=== PATIENT | male | born 1940 | race Caucasian/White ===

== ENCOUNTER → 2016-05-10 | Outpatient (CLI) | payer MEDICARE ==
[~2016-05-10] MED LIST: LISI-357 PO; LORTA5 PO; METF1000 PO; NOVOLOGSS SQ; PROT40TA PO; TEMA15 PO
== END ==
LOC: CDED 12:56
PROVIDERS: ATTEND Family Medicine
DX: E11.8 Type 2 diabetes mellitus with unspecified complications (principal)
CPT/HCPCS: G0108 ×2

== ENCOUNTER → 2017-04-11 | Outpatient (CLI) | payer MEDICARE ==
[~2017-04-11] MED LIST changes: +ACAR25TA PO; +AMLO10TA2 PO; +COZA50TA PO; +GRAN1TAB PO; +HUMALOG SQ; +LANTUS2P SQ; +LEVO100T5 PO; +PANT20TA2 PO; +SITA1TAB2 PO; +TEMA15CA PO
--- NOTE | 2017-04-11 14:05 | RADRPT ---
EXAM DATE/TIME: 04/11/2017 12:13 [facility] COMPARISON : INDICATIONS : Patient with a history of metastatic colorectalcancer, needs evaluated for liver m icrowave cryo CONSULT: 76 year-old male with history of metastatic colon CA in addition on Avastin maintenance with newly di agnosed solitary hepatic metastases in segment 7 of the liver near the dome. This lesion measures kam roximately 1.5 cm. This is a very technically challenging location given extreme high position near t he dome and proximity to heart/intrahepatic IVC. Patient will be scheduled for direct radiology clini c visit to discuss possible thermal ablation. Ferdinand Gomez MD on April 11, 2017 at 13:48 Board Certified Radiologist. This report was verified electronically.
== END ==
LOC: HRAD 11:38
PROVIDERS: ATTEND Internal Medicine Hematology & Oncology
DX: K76.9 Liver disease, unspecified (principal)

== ENCOUNTER 2017-04-14 14:18 | Day surgery (SDC) | payer MEDICARE ==
[~2017-04-14 14:18] MED LIST changes: -ACAR25TA PO; -AMLO10TA2 PO; -COZA50TA PO; -GRAN1TAB PO; -HUMALOG SQ; -LANTUS2P SQ; -LEVO100T5 PO; -PANT20TA2 PO; -SITA1TAB2 PO; -TEMA15CA PO
[2017-04-14 14:37] VITALS: BP 141/67; PULSE 65; RESP 20; TEMP 97.9; O2SAT 99
[2017-04-14] MEDS ORDERED: TEMA15CA PO (14:47)
[2017-04-14] MEDS ORDERED: AMLO10TA2 PO (14:47)
[2017-04-14] MEDS ORDERED: LANTUS2P SQ (14:57)
[2017-04-14] MEDS ORDERED: COZA50TA PO (14:57)
[2017-04-14] MEDS ORDERED: METF1000 PO (14:57)
[2017-04-14] MEDS ORDERED: HUMALOG SQ (14:57)
[2017-04-14] MEDS ORDERED: PANT20TA2 PO (14:57)
[2017-04-14] MEDS ORDERED: LEVO100T5 PO (14:57)
[2017-04-14] MEDS ORDERED: ACAR25TA PO (14:57)
[2017-04-14] MEDS ORDERED: SITA1TAB2 PO (14:57)
[2017-04-14] MEDS ORDERED: GRAN1TAB PO (14:57)
--- NOTE | 2017-04-14 16:02 | RADRPT ---
EXAM DATE/TIME: 04/14/2017 00:00 [facility] COMPARISON : INDICATIONS : CONSULT FOR LIVER ABLATION OBJECTIVE: Temperature: 97.9 Heart Rate: 65 Blood Pressure: 141/67 Respiratory: 18 Oximetry: 99 PNEUMONIA VACCINE: NO HISTORY OF PRESENT ILLNESS: 76-year-old male with history of perforated colon CA diagnosed in September 2015 status post colon resecti on with metastatic disease to the liver in remission on Avastin maintenance. PET/CT examination on 03/24/2017 demonstrates interval activity in previous PET negative mass in segment 8 of the liver anterio rly near the dome. He has no other apparent evidence of disease. He is without complaints with good f unctional status with controlled chronic medical conditions. PAST MEDICAL HISTORY : 1. Carcinoma, colon. 2. Metastatic, liver. 3. Hypothyriodism. 4. Diabetes type 2. 5. ANEMIA 6. Hypertension. PAST SURGICAL HISTORY : 1. RIGHT HEMICOLECTOMY 2. CATARACT SX 3. TONSILLECT SOCIAL HISTORY : Social alcohol use. Tobacco;former. ALLERGIES: 1. NKDA MEDICATIONS: 1. AMLODIPINE 10 mg q.d. 2. LANTUS INSULIN 10 units q.h.s. 3. JANUVIA 100 mg q.d. 4. METFORMIN 1000 mg b.i.d. 5. PROTONIX 40 mg q.d. 6. RESTORIL 30 mg q.h.s. 7. LEVOTHYROXINE 75 mcg q.d. 8. HUMALOG INSULIN units t.i.d. 9. LOSARTAN 50 mg q.d. 10. ACARBOSE mg q.d. PHYSICAL EXAMINATION: General: No acute distress Abdomen: Soft, nontender nondistended IMAGING STUDIES: PET/CT examination dated 03/24/2017 is reviewed. There is a 1.5 cm PET avid mass in anterior segment of the liver near the dome. There is no evidence for extrahepatic disease. ASSESSMENT: 76-year-old male with history of right colon CA metastatic to liver in remission on maintenance Avast in therapy with solitary new metastasis measuring 1.5 cm in segment 8 of the liver near the dome. Thi s is generally a challenging lesion for ablation due to proximity to the diaphragm and heart. However , this lesion is certainly amenable to ablation. Extensive discussion regarding risks and benefits wi th the patient. All questions were answered. PLAN: CT-guided microwave ablation of solitary metastasis in segment 8 of the liver. TIME SPENT: 25 minutes. Ferdinand Gmoez MD on April 14, 2017 at 15:49 Board Certified Radiologist. This report was verified electronically.
== END 2017-04-14 15:35 | disposition home or self-care (01) ==
LOC: HROP 14:18 → HRIP 14:21 → HROP 15:35
PROVIDERS: ATTEND Internal Medicine Hematology & Oncology
DX: C78.7 Secondary malignant neoplasm of liver and intrahepatic bile duct (principal); C18.9 Malignant neoplasm of colon, unspecified

== ENCOUNTER 2017-04-19 07:07 | Inpatient (IN) | payer MEDICARE ==
[~2017-04-19] VITALS: Ht 177.8 cm; Wt 64.6 kg
[~2017-04-19 07:07] MED LIST changes: +ACAR25TA PO; +AMLO10TA2 PO; +COZA50TA PO; +GRAN1TAB PO; +HUMALOG SQ; +LANTUS2P SQ; +LEVO100T5 PO; -LISI-357 PO; -LORTA5 PO; -NOVOLOGSS SQ; +PANT20TA2 PO; -PROT40TA PO; +SITA1TAB2 PO; -TEMA15 PO; +TEMA15CA PO
[2017-04-19 07:20] VITALS: BP 157/75; PULSE 68; RESP 20; TEMP 98.1; O2SAT 95
[2017-04-19] MEDS ORDERED: SODIUM CHLORID 0.9% 500 ML IV PRN (07:45)
[2017-04-19] MEDS ORDERED: ceFAZolin 2 GM PREMIX 50 ML IV SCH (07:45)
[2017-04-19] MEDS ORDERED: METOPROLOL TARTRATE 25 MG TAB PO PRN (07:45)
[2017-04-19] MEDS ORDERED: IMPLANTED VASCULAR ACCESS DEVICE/PORT - SODIUM CHLORIDE FLUSH IV FLUSH SCH (07:45)
[2017-04-19] MEDS ORDERED: INSULIN HUMAN REGULAR 1,000 UNITS/10 ML VIAL SQ PRN (07:45)
[2017-04-19] MEDS ORDERED: LACTATED RINGER'S 1000 ML IV PRN (07:45)
[2017-04-19] MEDS ORDERED: SODIUM CHLORIDE 2 ML FLUSH PRN IV FLUSH (07:45)
[2017-04-19] MEDS ORDERED: CHLORHEXIDINE GLUCONATE 2 % 1 PACK (2 CLOTHS) TOPICAL PRN (07:45)
[2017-04-19] MEDS ORDERED: POVIDONE IODINE 5% (ANTISEPSIS KIT) 4 APPLICATIONS EACH NARE PRN (07:45)
[2017-04-19] MEDS ORDERED: SODIUM CHLOR 0.9% 1000 ML IV SCH (07:45)
[2017-04-19] MEDS ORDERED: IMPLANTED VASCULAR ACCESS DEVICE/PORT - SODIUM CHLORIDE FLUSH PRN IV FLUSH (07:45)
[2017-04-19 07:59] LABS: AUTOMATED NEUTROPHIL # 3.9 TH/MM3 (1.8-7.7); BASOPHIL # 0.1 TH/MM3 (0-0.2); BASOPHIL % 0.9 % (0.0-2.0); EOSINOPHIL # 0.2 TH/MM3 (0-0.4); EOSINOPHIL % 3.7 % (0.0-4.0); HEMOGLOBIN 10.9 GM/DL (13.0-17.0); LYMPH % 21.2 % (9.0-44.0); LYMPHOCYTE # 1.3 TH/MM3 (1.0-4.8); MEAN CELL VOLUME 90.5 FL (80.0-100.0); MEAN CORPUSCULAR HEMOGLOBIN 30.7 PG (27.0-34.0); MEAN CORPUSCULAR HGB CONC 33.9 % (32.0-36.0); MEAN PLATELET VOLUME 7.5 FL (7.0-11.0); MONO % 11.2 % (0.0-8.0); MONOCYTE # 0.7 TH/MM3 (0-0.9); PLATELET COUNT 214 TH/MM3 (150-450); RED BLOOD COUNT 3.54 MIL/MM3 (4.50-5.90); RED CELL DISTRIBUTION WIDTH 16.4 % (11.6-17.2); WHITE BLOOD COUNT 6.2 TH/MM3 (4.0-11.0)
[2017-04-19 08:04] LABS: PROTHROMBIN TIME - PATIENT 9.7 SEC (9.8-11.6)
[2017-04-19 08:08] LABS: BICARBONATE 21.8 MEQ/L (21.0-32.0); CALCIUM 8.8 MG/DL (8.5-10.1); CREATININE 1.35 MG/DL (0.60-1.30)
[2017-04-19] MEDS: SODIUM CHLORIDE 2 ML FLUSH BID IV FLUSH SCH ×2 (09:00→21:00)
[2017-04-19] MEDS ORDERED: LIDOCAINE HCL 1% 20 ML VIAL ONE (09:30)
--- NOTE | 2017-04-19 11:58 | PD.RAD ---
Post CT Procedure Prog Note Pre Procedure Diagnosis: (1) Colorectal cancer, stage III Post Procedure Diagnosis: (1) Colorectal cancer, stage III Procedure Date: Apr 19, 2017 Supervising Radiologist: Ferdinand Gomez Anesthesia: General Plan of Activity Patient to Unit: PACU Patient Condition: Good See PACS Report for procedural detail/treatment Ferdinand Gomez MD Apr 19, 2017 11:58
[2017-04-19] MEDS ORDERED: DO NOT ADM ANY ANTICOAGULANT DRUGS PRN (12:45)
--- NOTE | 2017-04-19 13:12 | RADRPT ---
EXAM DATE/TIME: 04/19/2017 12:40 [facility] COMPARISON: CT ABDOMEN & PELVIS W CONTRAST, October 18, 2015, 16:09. CT GUIDED RF ABLATION, April 19, 2017, 10:17 . INDICATIONS : Post liver ablation MEDICAL HISTORY : Carcinoma, colon. Hypothyroidism. Diabetes mellitus type II. Metastatic liver SURGICAL HISTORY : colectomy ENCOUNTER: Subsequent ACUITY: 1 week PAIN SCORE: Non-responsive. LOCATION: chest FINDINGS: Portable semi-upright frontal views of the chest demonstrate no pneumothorax following recent procedu re. There is atelectasis at the lung bases related to expiratory technique. Left chest wall Infuse-a- Port is present. No pleural effusion is visualized. Pigtail drain overlies the inferior right hemitho rax/right upper quadrant. CONCLUSION: No pneumothorax is visualized. Jeffrey Saez MD on April 19, 2017 at 13:07 Board Certified Radiologist. This report was verified electronically.
[2017-04-19 16:00] VITALS: BP 156/68; PULSE 80; RESP 18; TEMP 96.8; O2SAT 97
[2017-04-19] MEDS ORDERED: TEMAZEPAM 15 MG CAP PO PRN (16:00)
--- NOTE | 2017-04-19 16:04 | RADRPT ---
EXAM DATE/TIME: 04/19/2017 10:17 [facility] COMPARISON: INVASIVE RADIOLOGY CONSULT, April 14, 2017, 0:00. CHEST EXPIRATION ONLY, April 19, 2017, 12:40. INDICATIONS : Liver lesion. Anesthesia and pain control was provided by the Anesthesia department. Prophylactic antibiotics were administered with appropriate pre-procedure timing. Vancomycin within 2 hrs of procedure, Ancef (or alternative) within 1 hr of procedure start. Intra-procedural antibiotics were given as prescribed above. DEVICE(S): 1.) 18 gauge Saleh blunt needle MEDICAL HISTORY : Carcinoma, colon. Renal insufficiency, chronic. Diabetes mellitus type 2. Hypertension. SURGICAL HISTORY : None. ENCOUNTER: Initial ACUITY: 1 day PAIN SCORE: 0/10 LOCATION: Liver PROCEDURE : Challenging CT-guided microwave ablation of 1.5 cm mass in segment 8 of the liver. The risks, benefits and alternatives to the procedure were explained and verbal and written consent w as obtained. Using automated exposure control and adjustment of the mA and/or kV according to patien t size, radiation dose was kept as low as reasonably achievable to obtain optimal diagnostic quality images. The site was prepped in sterile fashion. Full sterile technique was used, including cap, ma sk, sterile gloves and gown and a large sterile sheet. Hand hygiene and 2% chlorhexidine and/or beta dine/alcohol prep was utilized per protocol for cutaneous antisepsis. The skin and subcutaneous tiss ues were infiltrated with local anesthetic solution. DICOM format image data is available electronic ally for review and comparison. Patient was placed supine on the CT table. CT examination was performed identifying the small bowel 5 cm hepatic mass. Initial anterior medial cardiophrenic approach was utilized. An 18 gauge blunt-tip Saleh needle was advanced into the cardiophrenic sulcus and hydr dissection was performed with sali ne solution. In total, approximately 180 mL of sterile saline was injected. Disc related to a suffici ent window for advancement of a [employer] microwave probe. The pump was advanced using an anterior kam azpata. However, there was ultimately insufficient window near the liver capsule for pericardial clear ance. Therefore, probe was repositioned more anterolaterally. Advancement of the needle along this pa th resulted in a very small pneumothorax anteriorly which remains stable. There was some difficulty w ith penetrating the liver capsule with inferior mobile liver. Therefore, chest tube was placed to imp rove positioning of the liver. Ultimately following multiple maneuvers vering, the probe was successf ully advanced into the mass. Next, the mass was ablated for 8 minutes at 100 W with images obtained a t 3 minutes, 5 minutes, 8 minutes. There was appropriate progression of the ablation zone without brunilda dence for hematoma or other palpation. Probe was ultimately removed with ablation of the tract. Final post procedure CT exam demonstrated no other complication. CONCLUSION: 1. Technically successful but challenging microwave ablation of 1.5 cm mass in anterior segment 8 of the liver. 2. Small anterior procedural pneumothorax treated with small-bore chest tube. Ferdinand Gomez MD on April 19, 2017 at 15:09 Board Certified Radiologist. This report was verified electronically.
--- NOTE | 2017-04-19 16:05 | RADRPT ---
EXAM DATE/TIME: 04/19/2017 10:17 INDICATIONS : Patient with procedural pneumothorax right chest tube for decompression. Anesthesia and pain control was provided by the Anesthesia department. DEVICE(S): 1.) 8 [address] [place] 2.) 18 gauge Saleh blunt needle MEDICAL HISTORY : Carcinoma, colon. Renal insufficiency, chronic. Diabetes mellitus type 2. Hypertension. SURGICAL HISTORY : None. ENCOUNTER: Initial ACUITY: 1 day PAIN SCORE: 0/10 LOCATION: Right chest PROCEDURE : 1. CT guided chest tube placement. 2. Conscious sedation with continuous EKG and oximetry monitoring. The risks, benefits and alternatives to the procedure were explained and verbal and written consent w as obtained. The site was prepped in sterile fashion. Full sterile technique was used, including ca p, mask, sterile gloves and gown and a large sterile sheet. Hand hygiene and 2% chlorhexidine and/or betadine/alcohol prep was utilized per protocol for cutaneous antisepsis. The skin and subcutaneous tissues were infiltrated with local anesthetic solution. Using automated exposure control and adjus tment of the mA and/or kV according to patient size, radiation dose was kept as low as reasonably ach ievable to obtain optimal diagnostic quality images. DICOM format image data is available electronic ally for review and comparison. With CT guidance the chest was punctured and the prescribed catheter was placed in the anterior-infer ior right hemithorax. Wall suction was applied. Post procedure images demonstrate satisfactory posit ion of the tube. The catheter was sutured in place and a Percu-Stay was applied. Conscious sedation was performed with the prescribed dosages and duration as above. The patient marianela ated the procedure well and there were no complications. EKG and oximetry remained stable throughout the procedure. The patient was sent to post anesthesia recovery in stable condition. CONCLUSION: Uncomplicated chest tube placement for treatment of procedural pneumothorax. Please see CT ablation report for details. Ferdinand Gomez MD on April 19, 2017 at 16:01 Board Certified Radiologist. This report was verified electronically.
--- NOTE | 2017-04-19 16:06 | HHI.HP ---
[facility] Dany Peres MD Admission Diagnosis Diagnoses: (1) Metastasis to liver (2) Pneumothorax on right (3) Colon cancer (4) DM type 2 (diabetes mellitus, type 2) (5) Hypertension Chief Complaint: Pneumothorax s/p metastatic lesion ablation of the liver Travel History International Travel<30 Days: No Contact w/Intl Traveler <30 Da: No Traveled to Known Affected Are: No History of Present Illness 76-year-old male with a medical history significant for diabetes, hypertension, chemotherapy-induced anemia, hypothyroidism, metastatic colon cancer admitted to the hospital for ablation of a metastatic lesion of the liver. Postprocedure , apparently the patient had right sided pneumothorax. A chest tube has been inserted by interventional radiology. Hospitalist service admitting the patient for continuing medical management. On evaluation, the patient reports he is feeling okay except for pleuritic type chest pain on the right whenever he takes a deep breath. He has no other complaints. Review of Systems Constitutional: DENIES: Fever, Chills Respiratory: DENIES: Cough, Shortness of breath Cardiovascular: DENIES: Palpitations Gastrointestinal: DENIES: Nausea, Vomiting Except as stated in HPI: all other systems reviewed are Neg Past Family Social History Past Medical History diabetes, hypertension, chemotherapy-induced anemia, hypothyroidism, metastatic colon cancer to the liver Past Surgical History Right hemicolectomy in 2016 Cataract surgery 1997 Reported Medications Reported Meds & Active Scripts Active Reported Pantoprazole (Pantoprazole Sodium) 20 Mg Tab 40 Mg PO DAILY Metformin (Metformin HCl) 1,000 Mg Tab 1,000 Mg PO BIDPC Januvia (Sitagliptin Phosphate) 100 Mg Tab 100 Mg PO DAILY Acarbose 25 Mg Tab 50 Mg PO DAILY Take with first bite of meal. Levothyroxine (Levothyroxine Sodium) 100 Mcg Tab 150 Mcg PO DAILY Lantus Inj (Insulin Glargine) 1,000 Unit/10 Ml Vial 10 Units SQ HS Humalog Inj (Insulin Human Lispro) 1,000 Unit/10 Ml Vial 4 Units SQ ACHS Max dose at bedtime:( )units; sugars < 70,(0)units; sugars 150-199,(5)units; sugars 200-249,(10)units; sugars 250-299,(15)units; sugars 300-349,(20)units; sugars more than 349,(25)units. Granisetron (Granisetron HCl) 1 Mg Tab 1 Mg PO BID Cozaar (Losartan Potassium) 50 Mg Tab 25 Mg PO DAILY Amlodipine (Amlodipine Besylate) 10 Mg Tab 10 Mg PO DAILY Temazepam 15 Mg Cap 15 Mg PO HS PRN Allergies: Coded Allergies: No Known Allergies (Unverified Adverse Reaction, Unknown, 04/19/17) Family History Discussed and is noncontributory to current condition Social History Does not use tobacco. Alcohol socially on occasion. Physical Exam Vital Signs Vital Signs Date Time Temp Pulse Resp B/P (MAP) Pulse Ox O2 Delivery O2 Flow Rate FiO2 04/19/17 15:00 75 19 150/63 (92) 97 04/19/17 14:00 79 17 151/65 (93) 100 04/19/17 13:45 74 19 150/68 (95) 99 04/19/17 13:30 71 19 161/67 (98) 99 04/19/17 13:15 73 19 160/68 (98) 99 04/19/17 13:00 72 18 171/72 (105) 100 04/19/17 12:45 75 19 169/69 (102) 100 04/19/17 12:30 79 16 172/74 (106) 99 Nasal Cannula 2 04/19/17 12:22 98.0 87 20 178/89 (118) 98 Nasal Cannula 2 04/19/17 07:20 98.1 68 20 157/75 (102) 95 Physical Exam GENERAL: This is a well-nourished, well-developed patient, in no apparent distress. SKIN: No rashes, ecchymoses or lesions. Cool and dry. HEAD: Atraumatic. Normocephalic. No temporal or scalp tenderness. EYES: Pupils equal round and reactive. Extraocular motions intact. No scleral icterus. No injection or drainage. ENT: Nose without drainage. Throat without erythema, tonsillar hypertrophy or exudate. Uvula midline. Airway patent. NECK: Trachea midline. No JVD or lymphadenopathy. Supple, nontender, no meningeal signs. CARDIOVASCULAR: Regular rate and rhythm without murmurs, gallops, or rubs. RESPIRATORY: Right sided chest tube in place. Breath sounds diminished on the right base otherwise clear to auscultation bilaterally. No wheezes, rales, or rhonchi. GASTROINTESTINAL: Abdomen soft, non-tender, nondistended. No hepato-splenomegaly , or palpable masses. No guarding. MUSCULOSKELETAL: Extremities without clubbing, cyanosis, or edema. No joint tenderness, effusion, or edema noted. No calf tenderness. Negative Homans sign bilaterally. NEUROLOGICAL: Awake and alert. Cranial nerves II through XII intact. Motor and sensory grossly within normal limits. Five out of 5 muscle strength in all muscle groups. Normal speech. Laboratory Laboratory Tests Test 04/19/17 07:35 04/19/17 07:40 Prothrombin Time 9.7 Prothromb Time International Ratio 1.0 Activated Partial Thromboplast Time 29.2 Blood Urea Nitrogen 23 Creatinine 1.35 Random Glucose 122 Calcium Level 8.8 Sodium Level 140 Potassium Level 4.1 Chloride Level 110 Carbon Dioxide Level 21.8 Anion Gap 8 Estimat Glomerular Filtration Rate 52 White Blood Count 6.2 Red Blood Count 3.54 Hemoglobin 10.9 Hematocrit 32.0 Mean Corpuscular Volume 90.5 Mean Corpuscular Hemoglobin 30.7 Mean Corpuscular Hemoglobin Concent 33.9 Red Cell Distribution Width 16.4 Platelet Count 214 Mean Platelet Volume 7.5 Neutrophils (%) (Auto) 63.0 Lymphocytes (%) (Auto) 21.2 Monocytes (%) (Auto) 11.2 Eosinophils (%) (Auto) 3.7 Basophils (%) (Auto) 0.9 Neutrophils # (Auto) 3.9 Lymphocytes # (Auto) 1.3 Monocytes # (Auto) 0.7 Eosinophils # (Auto) 0.2 Basophils # (Auto) 0.1 CBC Comment DIFF FINAL Differential Comment Result Diagram: 04/19/17 0740 04/19/17 0735 Caprini VTE Risk Assessment Caprini VTE Risk Assessment: Mod/High Risk (score >= 2) VTE Pharm Contraindication: High risk for bleeding Caprini Risk Assessment Model Point Value = 1 Point Value = 2 Point Value = 3 Point Value = 5 Age 41-60 Minor surgery BMI > 25 kg/m2 Swollen legs Varicose veins or History of unexplained or recurrent spontaneous Oral contraceptives or hormone replacement Sepsis (< 1 month) Serious lung disease, including pneumonia (< 1 month) Abnormal pulmonary function Acute myocardial infarction Congestive heart failure (< 1 month) History of inflammatory bowel disease Medical patient at bed rest Age 61-74 Arthroscopic surgery Major open surgery (> 45 min) Laparoscopic surgery (> 45 min) Malignancy Confined to bed (> 72 hours) Immobilizing plaster cast Central venous access Age >= 75 History of VTE Family history of VTE Factor V Leiden Prothrombin [id number] Lupus anticoagulant Anticardiolipin antibodies Elevated serum homocysteine Heparin-induced thrombocytopenia Other congenital or acquired thrombophilia Stroke (< 1 month) Elective arthroplasty Hip, pelvis, or leg fracture Acute spinal cord injury (< 1 month) Prophylaxis Regimen Total Risk Factor Score Risk Level Prophylaxis Regimen 0-1 Low Early ambulation 2 Moderate Order ONE of the following: *Sequential Compression Device (SCD) *Heparin 5000 units SQ BID 3-4 Higher Order ONE of the following medications: *Heparin 5000 units SQ TID *Enoxaparin/Lovenox 40 mg SQ daily (WT < 150 kg, CrCl > 30 mL/min) *Enoxaparin/Lovenox 30 mg SQ daily (WT < 150 kg, CrCl > 10-29 mL/min) *Enoxaparin/Lovenox 30 mg SQ BID (WT < 150 kg, CrCl > 30 mL/min) AND/OR *Sequential Compression Device (SCD) 5 or more Highest Order ONE of the following medications: *Heparin 5000 units SQ TID (Preferred with Epidurals) *Enoxaparin/Lovenox 40 mg SQ daily (WT < 150 kg, CrCl > 30 mL/min) *Enoxaparin/Lovenox 30 mg SQ daily (WT < 150 kg, CrCl > 10-29 mL/min) *Enoxaparin/Lovenox 30 mg SQ BID (WT < 150 kg, CrCl > 30 mL/min) AND *Sequential Compression Device (SCD) Assessment and Plan Problem List: (1) Pneumothorax on right ICD Code: J93.9 - Pneumothorax, unspecified (2) Colon cancer ICD Code: C18.9 - Malignant neoplasm of colon, unspecified Status: Acute (3) Metastasis to liver ICD Code: C78.7 - Secondary malignant neoplasm of liver and intrahepatic bile duct (4) DM type 2 (diabetes mellitus, type 2) ICD Code: E11.9 - Type 2 diabetes mellitus without complications Status: Acute (5) Hypertension ICD Code: I10 - Essential (primary) hypertension Status: Acute Assessment and Plan 76-year-old male with metastatic colon cancer with a solitary metastatic lesion to the liver admitted to the hospital for ablation of the liver lesion. Postprocedure, the patient apparently had a right sided pneumothorax. A chest tube has been placed by interventional radiology. Official IR report is pending. Right sided pneumothorax: - Repeat chest x-ray shows expansion status post chest tube placement. - Pain control - Supplemental oxygen, Incentive spirometry - Further plans per interventional radiology. Hypertension: - Continue home dose antihypertensives including amlodipine and losartan. Type 2 diabetes: -Hold metformin and her carb post - Continue Lantus 10 units subcutaneous at bedtime. Sliding scale insulin with Accu-Cheks Metastatic colon cancer: - Followed by Dr. Castillo. Has been relatively stable on Avastin. Status post ablation of the liver lesion as above. Advised outpatient follow-up with Dr. Castillo. GI prophylaxis: Stool softener PRN constipation. DVT PPx: SCDs. Patient has fresh chest tube, hold off on pharmacological DVT prophylaxis. Physician Certification 2 Midnight Certification Type: Admission for Inpatient Services Order for Inpatient Services The services are ordered in accordance with Medicare regulations or non- Medicare payer requirements, as applicable. In the case of services not specified as inpatient-only, they are appropriately provided as inpatient services in accordance with the 2-midnight benchmark. Estimated LOS (days): 2 days is the estimated time the patient will need to remain in the hospital, assuming treatment plan goals are met and no additional complications. Post-Hospital Plan: Home Girma Lambert MD Apr 19, 2017 16:06
[2017-04-19] MEDS ORDERED: ACETAMINOPHEN/HYDROcodone 325 MG/5 MG TAB PO PRN (16:30)
[2017-04-19] MEDS ORDERED: MORPHINE SULFATE 2 MG/ML INJ IV PUSH PRN (16:30)
[2017-04-19] MEDS: INSULIN ASPART 1,000 UNITS/10 ML VIAL SQ SCH ×2 (17:15→21:00)
[2017-04-19 20:00] VITALS: BP 151/100; PULSE 89; RESP 16; TEMP 96.8; O2SAT 98
[2017-04-19] MEDS: INSULIN DETEMIR 100 UNITS/ML VIAL SQ SCH (21:00)
[2017-04-20] VITALS: BP 156/69; PULSE 80; RESP 16; TEMP 96.9; O2SAT 95
--- NOTE | 2017-04-20 00:27 | EKG ---
Date Performed: 04/19/2017 Time Performed: 07:39:44 PTAGE: 76 years EKG: Sinus rhythm NONSPECIFIC T-WAVE ABNORMALITY PREVIOUS TRACING : 10/06/2015 21.42 Since the prior tracing, there has been no significan t change DOCTOR: Robert Aguirre Interpretating Date/Time 04/20/2017 00:27:01
[2017-04-20 04:00] VITALS: BP 156/69; PULSE 81; RESP 16; TEMP 97.1; O2SAT 96
[2017-04-20] MEDS: LEVOTHYROXINE SODIUM 150 MCG TAB PO SCH (04:54)
[2017-04-20 08:00] VITALS: BP 195/87; PULSE 81; RESP 18; TEMP 99.1; O2SAT 95
[2017-04-20] MEDS: INSULIN ASPART 1,000 UNITS/10 ML VIAL SQ SCH ×4 (08:00→20:53)
[2017-04-20] MEDS: PANTOPRAZOLE SOD 40 MG DELAYED RELEASE TAB PO SCH (08:37)
[2017-04-20] MEDS: LOSARTAN 25 MG TAB PO SCH (08:37)
[2017-04-20] MEDS: SODIUM CHLORIDE 2 ML FLUSH BID IV FLUSH SCH ×2 (09:00→21:00)
--- NOTE | 2017-04-20 09:49 | RADRPT ---
EXAM DATE/TIME: 04/20/2017 08:12 [facility] COMPARISON: CHEST EXPIRATION ONLY, April 19, 2017, 12:40. INDICATIONS : Right pneumothorax. MEDICAL HISTORY : Hypertension. Diabetes mellitus type II. Carcinoma, colon. Carcinoma, Liver SURGICAL HISTORY : Infuse a port, Liver ablation. ENCOUNTER: Subsequent ACUITY: 2 days PAIN SCORE: 5/10 LOCATION: Right chest FINDINGS: A single frontal expiratory view of the chest was performed. No evidence of pneumothorax. Mediasti nal structures are in the midline. Left chest wall [id number] catheter. Small right-sided chest tu be and right basilar density. CONCLUSION: 1. Right-sided chest tube without pneumothorax. Hugh Rao MD on April 20, 2017 at 9:45 Board Certified Radiologist. This report was verified electronically.
[2017-04-20 12:00] VITALS: BP 152/70; PULSE 86; RESP 18; TEMP 98.4; O2SAT 96
[2017-04-20] MEDS ORDERED: ALPRAZolam 0.5 MG TAB PO ONE (12:50)
[2017-04-20 16:00] VITALS: BP 141/76; PULSE 79; RESP 16; TEMP 99.3; O2SAT 96
--- NOTE | 2017-04-20 19:51 | HHI.PR ---
Subjective Remarks 76M with right side pneumothorax and chest tube. His discomfort is controlled with pain meds, tolerating PO fine. He was hoping to go home soon, but I explained that expansion of a lung can sometimes take a few days depending on the size of the pneumothorax. Objective Vitals Vital Signs Date Time Temp Pulse Resp B/P (MAP) Pulse Ox O2 Delivery O2 Flow Rate FiO2 04/20/17 16:00 99.3 79 16 141/76 (97) 96 04/20/17 12:00 98.4 86 18 152/70 (97) 96 04/20/17 08:00 99.1 81 18 195/87 (123) 95 04/20/17 04:00 97.1 81 16 156/69 (98) 96 04/20/17 01:47 Nasal Cannula 2.00 04/20/17 00:00 96.9 80 16 156/69 (98) 95 04/19/17 20:00 96.8 89 16 151/100 (117) 98 I/O 04/19/17 04/19/17 04/19/17 04/20/17 04/20/17 04/20/17 07:00 15:00 23:00 07:00 15:00 23:00 Intake Total 740 ml 480 ml 480 ml Output Total 300 ml 1050 ml 600 ml Balance 440 ml -570 ml -120 ml Intake Oral 240 ml 480 ml 480 ml IV Total 500 ml Output Urine Total 300 ml 1050 ml 600 ml Chest Tube Drainage Total 0 ml # Voids 2 # Bowel Movements 0 0 0 Result Diagram: 04/19/17 0740 04/19/17 0735 Imaging Last 48 hours Impressions Chest X-Ray 04/20/17 0000 Signed Impressions: Service Date/Time: Thursday, April 20, 2017 08:12 - CONCLUSION: 1. Right-sided chest tube without pneumothorax. Hugh Rao MD Guidance Needle Placement CT 04/19/17 0000 Signed Impressions: Service Date/Time: Wednesday, April 19, 2017 10:17 - CONCLUSION: 1. Technically successful but challenging microwave ablation of 1.5 cm mass in anterior segment 8 of the liver. 2. Small anterior procedural pneumothorax treated with small-bore chest tube. Ferdinand Gomez MD Chest X-Ray 04/19/17 0000 Signed Impressions: Service Date/Time: Wednesday, April 19, 2017 12:40 - CONCLUSION: No pneumothorax is visualized. Jeffrey Saez MD Chest Tube Insertion 04/19/17 0000 Signed Impressions: Service Date/Time: Wednesday, April 19, 2017 10:17 - CONCLUSION: Uncomplicated chest tube placement for treatment of procedural pneumothorax. Please see CT ablation report for details. Ferdinand Gomez MD A/P Problem List: (1) Pneumothorax on right ICD Code: J93.9 - Pneumothorax, unspecified (2) Colon cancer ICD Code: C18.9 - Malignant neoplasm of colon, unspecified Status: Acute (3) Metastasis to liver ICD Code: C78.7 - Secondary malignant neoplasm of liver and intrahepatic bile duct (4) DM type 2 (diabetes mellitus, type 2) ICD Code: E11.9 - Type 2 diabetes mellitus without complications Status: Acute (5) Hypertension ICD Code: I10 - Essential (primary) hypertension Status: Acute Assessment and Plan Right sided pneumothorax No pneumothorax evident on current CXR Pulmonology consulted for assistance with chest tube removal PRN oxygen, incentive spirometry Unclear if intervention radiology is following since the H&P was by hospitalist following IR procedure. Hypertension Home dose Losartan and Amlodipine Type 2 diabetes Home dose Lantus 10 units at bedtime SSI coverage with accuchecks Metastatic colon cancer Followed by Dr. Castillo, table on Avastin. Status post ablation of the liver lesion as above DVT Prophylaxis Anticoagulants held due to chest tube freshly placed Reymundo Franklin MD Apr 20, 2017 19:51
[2017-04-20 20:00] VITALS: BP 167/72; PULSE 87; RESP 22; TEMP 99.7; O2SAT 97
[2017-04-20] MEDS: INSULIN DETEMIR 100 UNITS/ML VIAL SQ SCH (20:53)
[2017-04-20] MEDS ORDERED: TEMAZEPAM 15 MG CAP PO SCH (22:00)
[2017-04-21] VITALS: BP 158/75; PULSE 85; RESP 20; TEMP 98.8; O2SAT 98
[2017-04-21] MEDS: LEVOTHYROXINE SODIUM 150 MCG TAB PO SCH (06:23)
--- NOTE | 2017-04-21 07:17 | RADRPT ---
EXAM DATE/TIME: 04/21/2017 06:10 [facility] COMPARISON: CHEST EXPIRATION ONLY, April 20, 2017, 8:12. INDICATIONS : Short of breath, evaluate right side pneumothorax MEDICAL HISTORY : Hypertension. Diabetes mellitus type II. Carcinoma, colon. carcinoma , liver SURGICAL HISTORY : infusaport, liver ablation ENCOUNTER: Subsequent ACUITY: 4 - 6 days PAIN SCORE: 8/10 LOCATION: Right chest FINDINGS: Small caliber chest tube again seen at the extreme right lung base. There is mild right base atelecta sis again noted, not significantly changed. No pneumothorax demonstrated. Left lung remains clear. Heart size stable, within normal limits. Left subclavian [id number] catheter again seen with tip a t the atriocaval junction. CONCLUSION: No change. Right chest tube remains in place without pneumothorax. Mild right base consolidation agai n seen. Jeffrey Lobato MD on April 21, 2017 at 7:13 Board Certified Radiologist. This report was verified electronically.
[2017-04-21] MEDS: INSULIN ASPART 1,000 UNITS/10 ML VIAL SQ SCH ×2 (07:59→12:00)
[2017-04-21 08:00] VITALS: BP 172/84; PULSE 88; RESP 18; TEMP 98.2; O2SAT 93
[2017-04-21] MEDS: LOSARTAN 25 MG TAB PO SCH (08:02)
[2017-04-21] MEDS: PANTOPRAZOLE SOD 40 MG DELAYED RELEASE TAB PO SCH (08:02)
[2017-04-21] MEDS: SODIUM CHLORIDE 2 ML FLUSH BID IV FLUSH SCH (08:02)
--- NOTE | 2017-04-21 10:36 | RADRPT ---
EXAM DATE/TIME: 04/21/2017 09:30 [facility] COMPARISON: No previous studies available for comparison. INDICATIONS : Pneumothorax DEVICE(S): 1.) Vaseline occlusive dressing PROCEDURE : Chest tube removal. Using aseptic technique the previously placed chest tube was easily removed in one piece and Vaseline gauze and sterile dressing was applied. Chest radiograph is to be obtained. CONCLUSION: Uncomplicated chest tube removal. Ferdinand Gomez MD on April 21, 2017 at 10:32 Board Certified Radiologist. This report was verified electronically.
--- NOTE | 2017-04-21 11:13 | HHI.PR ---
Subjective Remarks Patient reports no shortness of breath or chest pain. Doing well overnight. No abdominal pain since the procedure tolerating diet. Objective Vitals Vital Signs Date Time Temp Pulse Resp B/P (MAP) Pulse Ox O2 Delivery O2 Flow Rate FiO2 04/21/17 08:45 Room Air 04/21/17 08:00 98.2 88 18 172/84 (113) 93 04/21/17 00:00 98.8 85 20 158/75 (102) 98 04/20/17 20:00 99.7 87 22 167/72 (103) 97 04/20/17 16:00 99.3 79 16 141/76 (97) 96 04/20/17 12:00 98.4 86 18 152/70 (97) 96 I/O 04/20/17 04/20/17 04/20/17 04/21/17 04/21/17 04/21/17 07:00 15:00 23:00 07:00 15:00 23:00 Intake Total 480 ml 480 ml 360 ml Output Total 1050 ml 600 ml 775 ml Balance -570 ml -120 ml -415 ml Intake Oral 480 ml 480 ml 360 ml Output Urine Total 1050 ml 600 ml 775 ml Chest Tube Drainage Total 0 ml # Voids 2 # Bowel Movements 0 0 0 Result Diagram: 04/19/17 0740 04/19/17 0735 Other Results Item Value Date Time Bedside Blood Glucose 65 mg/dl 04/21/17 0800 Bedside Blood Glucose 175 mg/dl 04/20/17 2059 Bedside Blood Glucose 240 mg/dl 04/20/17 1200 Imaging Last 48 hours Impressions Chest X-Ray 04/21/17 0600 Signed Impressions: Service Date/Time: April 06:10 - CONCLUSION: No change. Right chest tube remains in place without pneumothorax. Mild right base consolidation again seen. Jeffrey Lobato MD Chest X-Ray 04/20/17 0000 Signed Impressions: Service Date/Time: Thursday, April 20, 2017 08:12 - CONCLUSION: 1. Right-sided chest tube without pneumothorax. Hugh Rao MD Objective Remarks GENERAL: This is a well-nourished, well-developed patient, in no apparent distress. Chest wall-right sided chest tube in place. CARDIOVASCULAR: Regular rate and rhythm RESPIRATORY: Clear to auscultation. Breath sounds equal bilaterally. No wheezes , rales, or rhonchi. GASTROINTESTINAL: Abdomen soft, non-tender, nondistended. Normal active bowel sounds MUSCULOSKELETAL: Extremities without clubbing, cyanosis, or edema. NEURO: Alert & Oriented x4 to person, place, time, situation. Moves all ext x4 A/P Problem List: (1) Pneumothorax on right ICD Code: J93.9 - Pneumothorax, unspecified Status: Acute (2) Colon cancer ICD Code: C18.9 - Malignant neoplasm of colon, unspecified Status: Chronic (3) Metastasis to liver ICD Code: C78.7 - Secondary malignant neoplasm of liver and intrahepatic bile duct Status: Chronic (4) DM type 2 (diabetes mellitus, type 2) ICD Code: E11.9 - Type 2 diabetes mellitus without complications Status: Chronic (5) Hypertension ICD Code: I10 - Essential (primary) hypertension Status: Chronic Assessment and Plan 1. pneumothorax post liver mass ablation with intervention radiology status post chest tube placement with resolved pneumothorax on chest x-ray. Patient doing well with no respiratory distress. This time, discussed with and return to radiology to remove chest tube with a follow-up portable chest x-ray. If no recurrent pneumothorax will discharge patient to home with outpatient follow-up. 2. Metastatic liver mass status post ablation with intervention radiologycurrently no active pain. We'll discharge patient home with outpatient follow-up with primary care physician and oncology. 3. Diabetes mellitus type 2 - overall blood sugar controlled, continue with Accu-Cheks with sliding scale insulin. Discharge Planning Discharge to home after chest tube removed with no recurrent pneumothorax. Problem Qualifiers (1) Hypertension: Qualified Codes: I10 - Essential (primary) hypertension Evangelina Pantoja MD Apr 21, 2017 11:13
--- NOTE | 2017-04-21 11:19 | HHI.DS ---
Discharge Summary Admission Date Apr 19, 2017 at 11:57 Discharge Date: Apr 21, 2017 Admitting Diagnosis (1) Pneumothorax on right ICD Code: J93.9 - Pneumothorax, unspecified Diagnosis: Principal Status: Resolved (2) Colon cancer ICD Code: C18.9 - Malignant neoplasm of colon, unspecified Diagnosis: Secondary Status: Chronic (3) Metastasis to liver ICD Code: C78.7 - Secondary malignant neoplasm of liver and intrahepatic bile duct Diagnosis: Secondary Status: Chronic (4) DM type 2 (diabetes mellitus, type 2) ICD Code: E11.9 - Type 2 diabetes mellitus without complications Diagnosis: Secondary Status: Chronic (5) Hypertension ICD Code: I10 - Essential (primary) hypertension Diagnosis: Secondary Status: Chronic Procedures 04/19 ablation of the liver metastatic mass with interventional radiology 04/19 chest tube insertion due to postprocedure pneumothorax Brief History - From Admission Obtained from of any physicians history and physical 76-year-old male with a medical history significant for diabetes, hypertension, chemotherapy-induced anemia, hypothyroidism, metastatic colon cancer admitted to the hospital for ablation of a metastatic lesion of the liver. Postprocedure , apparently the patient had right sided pneumothorax. A chest tube has been inserted by interventional radiology. Hospitalist service admitting the patient for continuing medical management. On evaluation, the patient reports he is feeling okay except for pleuritic type chest pain on the right whenever he takes a deep breath. He has no other complaints. CBC/BMP: 04/19/17 0740 04/19/17 0735 Significant Findings Laboratory Tests Test 04/19/17 07:35 04/19/17 07:40 Prothrombin Time 9.7 SEC (9.8-11.6) Blood Urea Nitrogen 23 MG/DL (7-18) Creatinine 1.35 MG/DL (0.60-1.30) Random Glucose 122 MG/DL (74-106) Chloride Level 110 MEQ/L (98-107) Estimat Glomerular Filtration Rate 52 ML/MIN (>89) Red Blood Count 3.54 MIL/MM3 (4.50-5.90) Hemoglobin 10.9 GM/DL (13.0-17.0) Hematocrit 32.0 % (39.0-51.0) Monocytes (%) (Auto) 11.2 % (0.0-8.0) Imaging Last Impressions Tunnelled Chest Tube Removal 04/21/17 0930 Signed Impressions: Service Date/Time: April 09:30 - CONCLUSION: Uncomplicated chest tube removal. Ferdinand Gomez MD Chest X-Ray 04/21/17 0600 Signed Impressions: Service Date/Time: April 06:10 - CONCLUSION: No change. Right chest tube remains in place without pneumothorax. Mild right base consolidation again seen. Jeffrey Lobato MD Guidance Needle Placement CT 04/19/17 0000 Signed Impressions: Service Date/Time: Wednesday, April 19, 2017 10:17 - CONCLUSION: 1. Technically successful but challenging microwave ablation of 1.5 cm mass in anterior segment 8 of the liver. 2. Small anterior procedural pneumothorax treated with small-bore chest tube. Ferdinand Gomez MD Chest Tube Insertion 04/19/17 0000 Signed Impressions: Service Date/Time: Wednesday, April 19, 2017 10:17 - CONCLUSION: Uncomplicated chest tube placement for treatment of procedural pneumothorax. Please see CT ablation report for details. Ferdinand Gomez MD PE at Discharge GENERAL: This is a well-nourished, well-developed patient, in no apparent distress. Chest wall-right sided chest tube in place. CARDIOVASCULAR: Regular rate and rhythm RESPIRATORY: Clear to auscultation. Breath sounds equal bilaterally. No wheezes , rales, or rhonchi. GASTROINTESTINAL: Abdomen soft, non-tender, nondistended. Normal active bowel sounds MUSCULOSKELETAL: Extremities without clubbing, cyanosis, or edema. NEURO: Alert & Oriented x4 to person, place, time, situation. Moves all ext x4 Hospital Course 76-year-old male with a history metastatic colon cancer to the liver was admitted to the hospital secondary to acute pneumothorax after a post liver mass ablation with intervention radiology. A chest tube was placed with follow- up chest x-ray which revealed resolved meds of the pneumothorax. Patient had an uneventful hospitalization with chest tube removal prior to discharge to home. Patient's home medication was restarted during the hospitalization. His blood sugars monitored due to his history of diabetes mellitus type 2. Patient to follow-up with his primary care physician. Pt Condition on Discharge: Good Discharge Disposition: Discharge Home Discharge Time: <= 30 minutes Discharge Instructions DIET: Follow Instructions for: As Tolerated, No Restrictions, Diabetic Diet Activities you can perform: Regular-No Restrictions Follow up Referrals: PCP Follow-up Continued Medications: Acarbose (Acarbose) 25 Mg Tab 50 MG PO DAILY for Blood Sugar Management, #30 TAB 0 Refills Take with first bite of meal. Amlodipine (Amlodipine) 10 Mg Tab 10 MG PO DAILY for Blood Pressure Management, #30 TAB 0 Refills Granisetron (Granisetron) 1 Mg Tab 1 MG PO BID for Nausea/Vomiting, TAB 0 Refills Insulin Glargine Inj (Lantus Inj) 1,000 Unit/10 Ml Vial 10 UNITS SQ HS for Blood Sugar Management, VIAL 0 Refills Insulin Lispro (Human) Inj (Humalog Inj) 1,000 Unit/10 Ml Vial 4 UNITS SQ ACHS for Blood Sugar Management, #1 VIAL 0 Refills Max dose at bedtime:( )units; sugars < 70,(0)units; sugars 150-199,(5)units; sugars 200-249,(10)units; sugars 250-299,(15)units; sugars 300-349,(20)units; sugars more than 349,(25)units. Levothyroxine (Levothyroxine) 100 Mcg Tab 150 MCG PO DAILY for Thyroid, #30 TAB 0 Refills Losartan (Cozaar) 50 Mg Tab 25 MG PO DAILY for Blood Pressure Management, #30 TAB 0 Refills Metformin (Metformin) 1,000 Mg Tab 1000 MG PO BIDPC for Blood Sugar Management, #60 TAB 0 Refills Pantoprazole (Pantoprazole) 20 Mg Tab 40 MG PO DAILY for Reflux, #30 TAB 0 Refills Sitagliptin (Januvia) 100 Mg Tab 100 MG PO DAILY for Blood Sugar Management, #30 TAB 0 Refills Temazepam (Temazepam) 15 Mg Cap 15 MG PO HS PRN for INSOMNIA, #30 CAP 0 Refills Evangelina Pantoja MD Apr 21, 2017 11:19
--- NOTE | 2017-04-21 12:37 | RADRPT ---
EXAM DATE/TIME: 04/21/2017 11:49 [facility] COMPARISON: CHEST EXPIRATION ONLY, April 21, 2017, 6:10. INDICATIONS : Post chest tube removal MEDICAL HISTORY : Hypertension. Diabetes mellitus type II. SURGICAL HISTORY : Infusaport ENCOUNTER: Subsequent ACUITY: 4 - 6 days PAIN SCORE: 8/10 LOCATION: Right chest FINDINGS: 2 portable frontal views of the chest reveal a small right pleural effusion and right basilar consoli dation. This is stable from the earlier study. The right chest tube has been removed. No pneumothorax . Left-sided Port-A-Cath. Heart is normal in size. CONCLUSION: No pneumothorax following right chest tube removal. Unruly Burton Jr., MD on April 21, 2017 at 12:33 Board Certified Radiologist. This report was verified electronically.
== END 2017-04-21 14:38 | disposition home or self-care (01) | DRG 982 ==
LOC: HROP 07:07 → HRIP 07:11 → N07A 11:57 → HROP 16:07
PROVIDERS: ADMIT Family Medicine; ATTEND Family Medicine
PROC: 0F513ZZ Destruction of Right Lobe Liver, Percutaneous Approach (ICD-10-PCS; principal; 2017-04-19)
PROC: 0W9930Z Drainage of Right Pleural Cavity with Drainage Device, Percutaneous Approach (ICD-10-PCS; 2017-04-19)
PROC: 0WP9X0Z Removal of Drainage Device from Right Pleural Cavity, External Approach (ICD-10-PCS; 2017-04-21)
DX: J95.811 Postprocedural pneumothorax (principal); C78.7 Secondary malignant neoplasm of liver and intrahepatic bile duct; D64.81 Anemia due to antineoplastic chemotherapy; E11.9 Type 2 diabetes mellitus without complications; I10 Essential (primary) hypertension; T45.1X5A Adverse effect of antineoplastic and immunosuppressive drugs, initial encounter; E03.9 Hypothyroidism, unspecified; Z85.038 Personal history of other malignant neoplasm of large intestine; Z79.4 Long term (current) use of insulin; Z90.49 Acquired absence of other specified parts of digestive tract
CPT/HCPCS: 32557; 47382; 71045; 77013; 80048; 82948; 85025; 85610; 85730; 93005; C1729; C1769; J1642; J1815; J3010; J7040

== ENCOUNTER 2017-04-27 13:15 | Day surgery (SDC) | payer MEDICARE | END 2017-04-27 14:00 | disposition home or self-care (01) | LOC: HROP 13:15 → HRIP 13:16 → HROP 14:00 | PROVIDERS: ATTEND Internal Medicine Hematology & Oncology | DX: C78.7 Secondary malignant neoplasm of liver and intrahepatic bile duct (principal); C18.9 Malignant neoplasm of colon, unspecified ==